=== PATIENT | male | born 1975 | race Hispanic/Latino ===

== ENCOUNTER 2018-05-05 10:22 | Inpatient (IN) | payer BC ==
[2018-05-05 11:34] LABS: Absolute Lymphocytes (CBC) 0.6 K/uL (0.7-4.9); Absolute Monocytes 1.1 K/uL (0.1-1.3); Absolute Neutrophil 20.2 K/uL (1.8-8.0); Basophils % 0.1 % (0-1.3); Hematocrit 40.5 % (39.6-49.0); Lymphocytes % 2.9 % (15.3-44.8); MPV 9.6 fL (7.6-11.3); Monocytes % 5.1 % (3.3-12.3); RBC Red Blood Cell Count 4.91 M/uL (4.33-5.43)
[2018-05-05 11:35] LABS: Protime INR 1.37
[2018-05-05 11:50] LABS: ALT/SGPT 26 U/L (12-78); AST/SGOT 16 U/L (15-37); Albumin 2.6 g/dL (3.4-5.0); Alkaline Phosphatase 104 U/L (45-117); BUN Blood Urea Nitrogen 15 mg/dL (7-18); Bicarbonate 30 mmol/L (21-32); Bilirubin Direct 0.3 mg/dL (0-0.2); Bilirubin Total 0.7 mg/dL (0.2-1.0); Glucose Level 161 mg/dL (74-106); Magnesium 2.7 mg/dL (1.8-2.4); NT PRO-BNP 107 pg/mL (<125); Potassium 3.3 mmol/L (3.5-5.1); Protein, Total 6.6 g/dL (6.4-8.2); Sodium Level 137 mmol/L (136-145); Troponin (Emerg Dept Use Only) < 0.02 ng/mL (0.0-0.045)
--- NOTE | 2018-05-05 12:03 | EKG ---
Test Date: 2018-05-05 Test Time: 10:55:46 Software Configuration Engineer: SHARON MEASUREMENT RESULTS: Intervals: Rate: 91 MS: 148 QRSD: 104 QT: 336 QTc: 413 [place]: P: 73 MS: 148 QRS: 81 T: 56 INTERPRETIVE STATEMENTS: Normal sinus rhythm Normal ECG No previous ECG available for comparison Electronically Signed On 05-05-18 12:02:37 BUN MACHINE OPERATOR by Elpidio Drummond
--- NOTE | 2018-05-05 12:27 | RAD REPORT ---
EXAM DESCRIPTION: RAD - Chest Single View - 05/05/2018 12:20 pm CLINICAL HISTORY: COUGH Chest pain. COMPARISON: Chest Pa And Lat (2 Views) dated 05/04/2018 FINDINGS: Portable technique limits examination quality. Mild worsening of the right lower lobe lung consolidation since comparative study, compatible with wo rsening pneumonia. The heart is normal in size. No displaced fractures. IMPRESSION: Mild worsening in posterior right lower lobe pneumonia since comparative study.
--- NOTE | 2018-05-05 12:54 | ER ---
Nurse's Notes [facility] Name: Juanjose Wilde Age: 43 yrs Sex: Male : 1975 Arrival Date: 05/05/2018 Time: 10:25 Bed 19 Private MD: Diagnosis: Pneumonia due to other specified bacteria-Posterior lower right lung Presentation: 05/05 10:41 Presenting complaint: Patient states: sent by Leonela Boothe, had CXR and labs drawn iw yesterday, possible pneumonia and WBC=38, pt went to clinic c/o flu like symptoms, right flank pain, fever 103 yesterday, pt denies fever today, c/o mild flank pain, cough when he exerts himself. Transition of care: patient was not received from another setting of care. Onset of symptoms was May 05, 2018. Risk Assessment: Do you want to hurt yourself or someone else? Patient reports no desire to harm self or others. Initial Sepsis Screen: Does the patient meet any 2 criteria? No. Patient's initial sepsis screen is negative. Does the patient have a suspected source of infection? No. Patient's initial sepsis screen is negative. Care prior to arrival: None. 10:41 Method Of Arrival: Ambulatory iw 10:41 Acuity: REGINA 3 iw Triage Assessment: 10:45 General: Appears in no apparent distress. comfortable, ill, Behavior is cooperative, bp appropriate for age, anxious. Pain: Denies pain. Historical: - Allergies: 10:45 No Known Allergies; iw - Home Meds: 10:45 Augmentin Oral [Active]; Tamiflu Oral [Active]; iw - PMHx: 10:45 None; iw - PSHx: 10:45 None; iw - Immunization history:: Adult Immunizations not up to date. - Social history:: Smoking status: Patient/guardian denies using tobacco. - Ebola Screening: : Patient negative for fever greater than or equal to 101.5 degrees Fahrenheit, and additional compatible Ebola Virus Disease symptoms Patient denies exposure to infectious person Patient denies travel to an Ebola-affected area in the 21 days before illness onset No symptoms or risks identified at this time. Screenin:40 Abuse screen: Denies threats or abuse. Denies injuries from another. Nutritional bp screening: No deficits noted. Tuberculosis screening: No symptoms or risk factors identified. Fall Risk None identified. Assessment: 10:45 General: Appears in no apparent distress. comfortable, ill, Behavior is cooperative, bp appropriate for age, anxious. Pain: Denies pain. Neuro: Level of Consciousness is awake, alert, obeys commands, Oriented to person, place, time, situation, Appropriate for age. Cardiovascular: Rhythm is sinus rhythm. Respiratory: Airway is patent Respiratory effort is even, unlabored, Respiratory pattern is regular, symmetrical, Breath sounds are diminished. GI: No signs and/or symptoms were reported involving the gastrointestinal system. : No signs and/or symptoms were reported regarding the genitourinary system. EENT: No deficits noted. Derm: No deficits noted. Musculoskeletal: Circulation, motion, and sensation intact. Range of motion: intact in all extremities. 12:40 Reassessment: ALL CURRENT ORDERS COMPLETED, RESULTS PENDING. bp Vital Signs: 10:45 BP 142 / 92; Pulse 108; Resp 18 S; Temp 98.6(O); Pulse Ox 99% on R/A; Weight 61.23 kg; iw Height 5 ft. 8 in. (172.72 cm); Pain 0/10; 11:42 BP 115 / 72; Pulse 92; Resp 19; Temp 98.7(O); Pulse Ox 99% on R/A; mh5 13:00 BP 112 / 83; Pulse 91; Resp 19; Pulse Ox 98% ; bp 14:00 BP 109 / 79; Pulse 85; Resp 25; Pulse Ox 99% ; bp 15:00 BP 133 / 98; Pulse 89; Resp 20; Pulse Ox 100% ; bp 16:00 BP 114 / 79; Pulse 88; Resp 19; Pulse Ox 99% ; bp 10:45 Body Mass Index 20.53 (61.23 kg, 172.72 cm) iw ED Course: 10:25 Patient arrived in ED. mr 10:28 Beny Martinez, PREMA is Primary Nurse. bp 10:29 Lobito Ann PA is PHCP. cp 10:29 Lobito De La Rosa MD is Attending Physician. cp 10:44 Triage completed. iw 10:45 Arm band placed on. iw 11:04 EKG done, by distribution tech. reviewed by Lobito POWELL. at1 11:10 Inserted saline lock: 20 gauge in right forearm, using aseptic technique. Blood bp collected. 12:19 X-ray completed. Portable x-ray completed in exam room. Patient tolerated procedure jb2 well. 12:20 XRAY Chest (1 view) In Process Unspecified. EDMS 12:40 Patient has correct armband on for positive identification. Placed in gown. Bed in low bp position. Call light in reach. Side rails up X2. 12:53 Yeyo Antonio MD is Hospitalizing Provider. cp 17:37 No provider procedures requiring assistance completed. Patient admitted, IV remains in bp place. Administered Medications: 12:45 Drug: LevaQUIN 750 mg Volume: 150 ml; Route: IVPB; Infused Over: 90 mins; Site: right bp forearm; 15:00 Follow up: IV Status: Completed infusion; IV Intake: 200ml bp Intake: 15:00 IV: 200ml; Total: 200ml. bp Outcome: 12:54 Decision to Hospitalize by Provider. cp 18:12 Admitted to Tele accompanied by tech, family with patient, via wheelchair, room 228, bp with chart, Report called to FANG LLOYD 18:12 Condition: stable 18:12 Instructed on the need for admit. 18:19 Patient left the ED. bp Signatures: Dispatcher [employer] EDAZ Alisia Patel, Dustin jb2 Daphne Hargrove, RN RN iw Velia Davis, mower operator EKG Lucian1 Lobito Ann PA PA cp Martinez, [facility] Beny Martinez, RN RN bp
--- NOTE | 2018-05-05 12:54 | EDPHYS ---
Physician Documentation [facility] Name: Juanjose Wilde Age: 43 yrs Sex: Male : 1975 Arrival Date: 05/05/2018 Time: 10:25 Bed 19 Private MD: ED Physician Lobito De La Rosa HPI: 05/05 10:45 This 43 yrs old Male presents to ER via Ambulatory with complaints of Abnormal cp Lab Results. 10:45 The patient or guardian reports cough, that is intermittent. cp 10:45 Onset: The symptoms/episode began/occurred 2 day(s) ago. Associated signs and symptoms: cp Pertinent positives: fever, Pertinent negatives: chest pain, diarrhea, vomiting. Patient reports seeing PCP yesterday and having abnormal WBC of 33. Patient reports he was referred to ED for evaluation. Was started on oral Augmentin yesterday. Historical: - Allergies: 10:45 No Known Allergies; iw - Home Meds: 10:45 Augmentin Oral [Active]; Tamiflu Oral [Active]; iw - PMHx: 10:45 None; iw - PSHx: 10:45 None; iw - Immunization history:: Adult Immunizations not up to date. - Social history:: Smoking status: Patient/guardian denies using tobacco. - Ebola Screening: : Patient negative for fever greater than or equal to 101.5 degrees Fahrenheit, and additional compatible Ebola Virus Disease symptoms Patient denies exposure to infectious person Patient denies travel to an Ebola-affected area in the 21 days before illness onset No symptoms or risks identified at this time. ROS: 10:55 Constitutional: Negative for body aches, chills, fever, poor PO intake. cp 10:55 Eyes: Negative for injury, pain, redness, and discharge. cp 10:55 ENT: Negative for drainage from ear(s), ear pain, sore throat, difficulty swallowing, difficulty handling secretions. 10:55 Neck: Negative for pain with movement, pain at rest, stiffness. 10:55 Cardiovascular: Negative for chest pain, edema, palpitations. 10:55 Respiratory: Positive for cough, Negative for shortness of breath, wheezing. 10:55 Abdomen/GI: Negative for abdominal pain, nausea, vomiting, and diarrhea, black/tarry stool, rectal bleeding. 10:55 Skin: Negative for cellulitis, rash. 10:55 Neuro: Negative for altered mental status, dizziness, headache, syncope, near syncope, weakness. 10:55 All other systems are negative. Exam: 11:00 Constitutional: The patient appears in no acute distress, alert, awake, cp non-diaphoretic, non-toxic, well developed, well nourished. 11:00 Head/Face: Normocephalic, atraumatic. cp 11:00 Eyes: Periorbital structures: appear normal, Conjunctiva: normal, no exudate, no injection, Sclera: no appreciated abnormality, Lids and lashes: appear normal, bilaterally. 11:00 ENT: External ear(s): are unremarkable, Ear canal(s): are normal, clear, TM's: dullness, bilaterally, Nose: is normal, Mouth: Lips: moist, Oral mucosa: pink and intact, moist, Posterior pharynx: Airway: no evidence of obstruction, patent, Tonsils: are normal in appearance, Uvula: midline, swelling, is not appreciated, erythema, is not appreciated, exudate, is not appreciated. 11:00 Neck: ROM/movement: is normal, is supple, without pain, no range of motions limitations, no meningismus, no nuchal rigidity, Lymph nodes: no appreciated lymphadenopathy. 11:00 Chest/axilla: Inspection: normal, Palpation: is normal, no crepitus, no tenderness. 11:00 Cardiovascular: Rate: tachycardic, Rhythm: regular, Pulses: Pulses are 2+ in right radial artery and left radial artery. Edema: is not appreciated, JVD: is not appreciated. 11:00 Respiratory: the patient does not display signs of respiratory distress, Respirations: normal, no use of accessory muscles, no retractions, no splinting, no tachypnea, labored breathing, is not present, Breath sounds: are clear throughout, no decreased breath sounds, no stridor, no wheezing. 11:00 Abdomen/GI: Inspection: abdomen appears normal, Bowel sounds: active, all quadrants, Palpation: abdomen is soft and non-tender, in all quadrants. 11:00 Back: pain, is absent, ROM is normal. 11:00 Skin: cellulitis, is not appreciated, no rash present. 11:00 Neuro: Orientation: to person, place \T\ time. Mentation: is normal, Cerebellar function: is grossly normal, Motor: moves all fours, strength is normal, Sensation: is normal. 11:10 ECG was reviewed by the Attending Physician. cp Vital Signs: 10:45 BP 142 / 92; Pulse 108; Resp 18 S; Temp 98.6(O); Pulse Ox 99% on R/A; Weight 61.23 kg; iw Height 5 ft. 8 in. (172.72 cm); Pain 0/10; 11:42 BP 115 / 72; Pulse 92; Resp 19; Temp 98.7(O); Pulse Ox 99% on R/A; mh5 13:00 BP 112 / 83; Pulse 91; Resp 19; Pulse Ox 98% ; bp 14:00 BP 109 / 79; Pulse 85; Resp 25; Pulse Ox 99% ; bp 15:00 BP 133 / 98; Pulse 89; Resp 20; Pulse Ox 100% ; bp 16:00 BP 114 / 79; Pulse 88; Resp 19; Pulse Ox 99% ; bp 10:45 Body Mass Index 20.53 (61.23 kg, 172.72 cm) iw MDM: 10:36 Patient medically screened. cp 11:00 Differential diagnosis: bronchitis, flu, pneumonia, sepsis. cp 12:45 Data reviewed: vital signs, nurses notes, lab test result(s), EKG, radiologic studies, cp plain films. 12:45 Test interpretation: by ED physician or midlevel provider: ECG, plain radiologic cp studies. Response to treatment: the patient's symptoms have markedly improved after treatment. 05/05 10:40 Order name: Basic Metabolic Panel; Complete Time: 12:32 cp 05/05 10:40 Order name: CBC with Diff cp 05/05 11:43 Interpretation: Normal except: KEELY% 91.9; LYM% 2.9; LYMA 0.6; WBC 22.0; NEUT A 20.2. cp 05/05 10:40 Order name: LFT's; Complete Time: 12:32 cp 05/05 10:40 Order name: Magnesium; Complete Time: 12:32 cp 05/05 10:40 Order name: NT PRO-BNP; Complete Time: 12:32 cp 05/05 10:40 Order name: PT-INR; Complete Time: 12:32 cp 05/05 10:40 Order name: Troponin (emerg Dept Use Only); Complete Time: 12:32 cp 05/05 10:40 Order name: Blood Culture Adult (2) cp 05/05 10:40 Order name: Procalcitonin; Complete Time: 12:32 cp 05/05 10:40 Order name: Lactate; Complete Time: 12:32 cp 05/05 11:43 Order name: Manual Differential EDMS 05/05 13:08 Order name: ABG Arterial Blood Gas EDMS 05/05 13:08 Order name: Lactate EDMS 05/05 13:09 Order name: Lactate EDMS 05/05 10:40 Order name: EKG; Complete Time: 10:42 cp 05/05 10:40 Order name: Cardiac monitoring; Complete Time: 10:47 cp 05/05 10:40 Order name: EKG - Nurse/Tech; Complete Time: 10:47 cp 05/05 10:40 Order name: IV Saline Lock; Complete Time: 11:18 cp 05/05 10:40 Order name: Labs collected and sent; Complete Time: 11:18 cp 05/05 10:40 Order name: O2 Per Protocol; Complete Time: 10:47 cp 05/05 10:40 Order name: O2 Sat Monitoring; Complete Time: 10:47 cp 05/05 11:46 Order name: XRAY Chest (1 view); Complete Time: 12:32 cp 05/05 13:09 Order name: Lactate EDMS EC:10 Rate is 91 beats/min. Rhythm is regular. NE interval is normal. QRS interval is cp prolonged at 104 msec. QT interval is normal. Interpreted by me. Reviewed by me. Administered Medications: 12:45 Drug: LevaQUIN 750 mg Volume: 150 ml; Route: IVPB; Infused Over: 90 mins; Site: right bp forearm; 15:00 Follow up: IV Status: Completed infusion; IV Intake: 200ml bp Disposition: 05/06 07:06 Co-signature as Attending Physician, Lobito De La Rosa MD I agree with the assessment and melissa plan of care. Disposition: 05/05/18 12:54 Hospitalization ordered by Yeyo Antonio for Inpatient Admission. Preliminary diagnosis is Pneumonia due to other specified bacteria - Posterior lower right lung. - Bed requested for Telemetry/MedSurg (Inpatient). - Status is Inpatient Admission. bp - Condition is Stable. - Problem is new. - Symptoms have improved. UTI on Admission? No Signatures: Dispatcher [employer] EDLA Lobito De La Rosa MD MD cha Williams, Irene RN RN iw Lobito Ann PA PA cp Simran Minor, RN RN df Beny Martinez RN RN bp Corrections: (The following items were deleted from the chart) 05/05 11:43 11:43 Normal except: WBC 22.0; KEELY% 91.9; LYM% 2.9. cp cp 12:54 12:54 Hospitalization Ordered by Yeyo Antonio MD for Inpatient Admission. Preliminary cp diagnosis is Pneumonia due to other specified bacteria. Bed requested for Telemetry/MedSurg (Inpatient). Status is Inpatient Admission. Condition is Stable. Problem is new. Symptoms have improved. UTI on Admission? No. cp 17:08 12:54 05/05/2018 12:54 Hospitalization Ordered by Yeyo Antonio MD for Inpatient df Admission. Preliminary diagnosis is Pneumonia due to other specified bacteria - Posterior lower right lung. Bed requested for Telemetry/MedSurg (Inpatient). Status is Inpatient Admission. Condition is Stable. Problem is new. Symptoms have improved. UTI on Admission? No. cp 17:48 17:08 05/05/2018 12:54 Hospitalization Ordered by Yeyo Antonio MD for Inpatient df Admission. Preliminary diagnosis is Pneumonia due to other specified bacteria - Posterior lower right lung. Bed requested for Telemetry/MedSurg (Inpatient). Status is Inpatient Admission. Condition is Stable. Problem is new. Symptoms have improved. UTI on Admission? No. df 18:19 17:48 05/05/2018 12:54 Hospitalization Ordered by Yeyo Antonio MD for Inpatient bp Admission. Preliminary diagnosis is Pneumonia due to other specified bacteria - Posterior lower right lung. Bed requested for Telemetry/MedSurg (Inpatient). Status is Inpatient Admission. Condition is Stable. Problem is new. Symptoms have improved. UTI on Admission? No. df
[2018-05-05 12:56] LABS: Blood Morphology Comment NOT SEEN (NOT SEEN); Platelet Estimate ADEQ
[2018-05-05] MEDS ORDERED: SODIUM CHL 0.9% 1000 ML BAG IV ONE (13:06)
[2018-05-05] MEDS ORDERED: Levofloxacin 750mg IV 750 MG/150 ML BAG IV ONE (13:10)
[2018-05-05 13:37] LABS: Arterial Blood Carboxyhemoglob 0.8 % (0-1.5); Blood Gas Oxyhemoglobin 95.2 % (94-97); Blood O2 Saturation 97.1 % (92-98.5)
[2018-05-05] MEDS ORDERED: NA CHLORIDE 0.9% 2,000 ML ONE (17:03)
[2018-05-05] MEDS ORDERED: ONDANSETRON 4 MG/2 ML VIAL IV PRN (18:09)
[2018-05-05] MEDS ORDERED: ACETAMINOPHEN 325 MG TABLET PO PRN (18:09)
[2018-05-05] MEDS: ENOXAPARIN 40 MG/0.4 ML SQ SCH (19:27)
[2018-05-05] MEDS: NA CHLORIDE 0.9% 1,000 ML IV SCH (19:28)
[2018-05-05] MEDS ORDERED: POTASSIUM CL SA 10 MEQ TAB PO ONE (20:22)
--- NOTE | 2018-05-06 02:30 | HP ---
Date of Admission: 05/05/2018 Chief Complaint: Shortness of breath, fever, chills. History Of Present Illness: The patient is a 43-year-old male with no significant past medical histo ry, who was in his usual state of health until 3 days prior to admission when the patient had sudden onset of fever, chills, cough with scant sputum production along with lethargy and nausea. The patie nt denies any ill contacts. The patient was unable to go to work on Wednesday. He came into the clini c in [place], had blood draw, and was referred to the hospital for imaging studies. The patien t did not wish to go to [place], therefore came into [facility] for evaluation. Chest x-ray was done and the patient was discharged with antibiotics. The patient was then called from the hospital due t o his x-ray results and was stated to come into the hospital for further evaluation and treatment. T he patient has had elevated temperature. His symptoms are constant, moderate, progressively worsenin g. In the ER, his workup revealed a white count of 22,000. His lactate was negative. Procalcitonin was elevated at 5.38. Potassium was low. The patient was started on IV antibiotics, was given IV f luids, and then referred for admission. When the patient was seen in the ER, he was awake, alert, or iented x3, in some mild distress. Past Medical History: None. Past Surgical History: The patient denies any surgical history. Allergies: NO KNOWN DRUG ALLERGIES. Medications: The patient was prescribed antibiotic yesterday, only took 1 dose prior to being admitt ed to the hospital. Family History: States high blood pressure runs in the family. Social History: The patient is . No children. 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 Denies any nicotine use. Does not smoke. Does drink occasionally. In the past month, drank 18 beers throughout the month. Not a daily drinker. No illicit drug use. Review of Systems: An 11-point system reviewed, negative except as per HPI. Physical Examination: Vital Signs: Blood pressure 142/92, pulse 108, respirations 18, temperature 98.6, O2 99% on room air . General: Awake, alert, oriented x3, in some mild distress, ill-appearing male. HEENT: Normocephalic, atraumatic. PERRLA. EOMI. Dry mucous membranes. Oropharynx is clear. Conj unctivae anicteric. Neck: Supple. No JVD. Trachea midline. CV: S1, S2. Regular rate and rhythm. Peripheral pulses present. No murmurs. Respiratory: Diminished breath sounds at the bases, right worse than left. No wheezing. Some dulln ess to percussion on the right base. Gastrointestinal: Abdomen is soft, nontender, nondistended. Positive bowel sounds. Extremities: No clubbing, cyanosis, or edema. No calf tenderness. Neuro: Cranial nerves 2-12 intact grossly. No focal neurological deficit. Speech is normal. Stren gth is 5/5 bilateral upper and lower extremities. Sensation intact to light touch. Skin: No rashes. Normal skin turgor. Capillary refill is less than 2 seconds. Laboratory Data: Sodium 137, potassium 3.3, chloride 101, CO2 30, BUN 15, creatinine 0.7, glucose 16 1, lactate 1.3, repeat lactate level is 1, calcium 9, magnesium 2.7. Troponin less than 0.02. Album in 2.6. Procalcitonin is 5.38. ABG; pH 7.48, pCO2 36.3, pO2 92.7, bicarb 26.4, INR 1.37. WBC 22,00 0, H and H is 13.9 and 40.5, platelets 255, neutrophils 91%, 1% bands. Chest x-ray shows mild worsen ing in the posterior right lower lobe pneumonia since comparative study from yesterday. EKG shows no rmal sinus rhythm, rate of 91. No EKG for comparison. Assessment: A 43-year-old male with: 1.Sepsis secondary to pneumonia. The patient has elevated white count 22,000. Procalcitonin is als o elevated. The patient is tachypneic, had high fevers. We will start on sepsis bundle, IV fluid hy dration, broad-spectrum IV antibiotics. Follow up on cultures. 2.Right lower lobe pneumonia. We will continue antibiotics. Follow up on culture results. 3.Hypokalemia. We will replace and monitor. 4.Gastrointestinal and deep venous thrombosis prophylaxis with PPI and Lovenox. Plan: Admit the patient to [facility], place as inpatient with remote cardiac telemetry. Length of st ay greater than 2 midnights. SA/MODL Voice ID: [id number]
[2018-05-06 02:39] LABS: Urine Appearance CLEAR; Urine Bilirubin NEGATIVE (NEG); Urine Blood NEGATIVE (NEG); Urine Color YELLOW; Urine Glucose NEGATIVE (NEG); Urine Protein TRACE (NEG); Urine Specific Gravity 1.025 (1.005-1.030)
[2018-05-06 02:50] LABS: Urine Microscopic Reflex ORDER UMIC
[2018-05-06 03:37] LABS: Urine Bacteria <20 /HPF (NONE SEEN); Urine Culture Reflex Order NOT NEEDED; Urine Mucus 4+ /HPF (NONE SEEN); Urine RBC <5 /HPF (NONE SEEN)
[2018-05-06] MEDS: NA CHLORIDE 0.9% 1,000 ML IV SCH ×4 (05:34→16:41)
[2018-05-06 09:18] LABS: BUN Blood Urea Nitrogen 16 mg/dL (7-18); Bicarbonate 29 mmol/L (21-32); Glucose Level 99 mg/dL (74-106); Potassium 3.9 mmol/L (3.5-5.1); Sodium Level 141 mmol/L (136-145)
[2018-05-06] MEDS ORDERED: OSELTAMIVIR 75 MG CAP PO SCH (10:00)
[2018-05-06 10:16] LABS: Absolute Monocytes 0.9 K/uL (0.1-1.3); Absolute Neutrophil 12.1 K/uL (1.8-8.0); Basophils % 0.1 % (0-1.3); Eosinophils % 0.2 % (0-4.4); Hematocrit 37.1 % (39.6-49.0); MPV 9.4 fL (7.6-11.3); Monocytes % 6.4 % (3.3-12.3); RBC Red Blood Cell Count 4.48 M/uL (4.33-5.43)
[2018-05-06] MEDS ORDERED: Levofloxacin 750mg IV 750 MG/150 ML BAG IV SCH (13:00)
[2018-05-06] MEDS ORDERED: POTASSIUM CL SA 10 MEQ TAB PO ONE (16:00)
[2018-05-06] MEDS: ENOXAPARIN 40 MG/0.4 ML SQ SCH (16:35)
--- NOTE | 2018-05-06 16:37 | PN ---
Date of Progress Note: 05/06/2018 Subjective: The patient is seen and examined, chart reviewed, and case discussed with RN. The patie nt feels significantly better, still having some cough without any amount of significant sputum. Medications: List reviewed. Physical Examination: Vital Signs: Temperature 97.9, heart rate 86, blood pressure 105/68, respirations 16, and O2 of 98% on room air. General: Awake, alert, and oriented x3. No acute distress. Mildly ill-appearing male. CV: S1 and S2, regular rate and rhythm. Peripheral pulses present. Respiratory: Moving air well bilaterally. No wheezing or stridor. Gastrointestinal: Abdomen is soft, nontender, and nondistended. Positive bowel sounds. Extremities: No clubbing, cyanosis, or edema. Neurologic: Nonfocal. Laboratory Data: Sodium 141, potassium 3.9, chloride 109, CO2 of 29, BUN 16, creatinine 0.63, glucos e 99, and calcium 8.4. WBC 14, H and H of 12.5 and 37.1, platelets 251, neutrophils 86.3%. Assessment And Plan: A 43-year-old male with, 1.Sepsis secondary to pneumonia, improving. Blood cultures, no growth to date. Sputum culture, pen ding. 2.Right lower lobe pneumonia. We will continue antibiotics. Cultures are negative. Clinically imp roved cough, however, still persistent. No fevers. White count trending down. 3.Hypokalemia. We will replace and monitor. 4.Gastrointestinal and deep venous thrombosis prophylaxis with PPI and Lovenox. PLAN: Likely discharge in a.m. if continues to improve. Continue IV fluids. /ALETHA Voice ID: [id number] Report ID: [id number]
[2018-05-07] MEDS: NA CHLORIDE 0.9% 1,000 ML IV SCH ×2 (02:08→06:51)
[2018-05-07 05:31] LABS: Absolute Monocytes 0.8 K/uL (0.1-1.3); Absolute Neutrophil 8.6 K/uL (1.8-8.0); Basophils % 0.3 % (0-1.3); Eosinophils % 0.3 % (0-4.4); Hematocrit 37.9 % (39.6-49.0); Lymphocytes % 9.9 % (15.3-44.8); MPV 9.8 fL (7.6-11.3); Monocytes % 7.2 % (3.3-12.3); RBC Red Blood Cell Count 4.49 M/uL (4.33-5.43)
[2018-05-07 05:50] LABS: ALT/SGPT 44 U/L (12-78); AST/SGOT 13 U/L (15-37); Albumin 2.2 g/dL (3.4-5.0); Alkaline Phosphatase 92 U/L (45-117); BUN Blood Urea Nitrogen 12 mg/dL (7-18); Bicarbonate 26 mmol/L (21-32); Bilirubin Total 0.4 mg/dL (0.2-1.0); Glucose Level 104 mg/dL (74-106); Potassium 3.6 mmol/L (3.5-5.1); Protein, Total 5.4 g/dL (6.4-8.2); Sodium Level 143 mmol/L (136-145)
[2018-05-07] MEDS ORDERED: POTASSIUM CL SA 10 MEQ TAB PO ONE (06:31)
--- NOTE | 2018-05-08 07:41 | DS ---
Date of Discharge: 05/07/2018 Admitting Diagnoses: 1.Sepsis. 2.Pneumonia, right lower lobe. 3.Hypokalemia. Discharge Diagnoses: 1.Sepsis, resolving. 2.Pneumonia, right lower lobe, improved. 3.Hypokalemia, corrected. 4.Severe protein-calorie malnutrition. Albumin 2.2, continue with supplements. Hospital Course: The patient is a 43-year-old male who was admitted to the hospital with sepsis seco ndary to right lower lobe pneumonia. The patient had elevated white count at 22,000. His procalcito bashir was elevated at 5.3. He was septic. He was started on sepsis bundle, was received sepsis bolus with IV fluids, and started on IV antibiotics. The patient's condition improved with antibiotic ramiro tment. His cultures remained negative. White count normalized. His procalcitonin was trending down . He was no longer septic. The patient is able to move around without any difficulty. Cough still continuing, however, very little sputum production. No shortness of breath. The patient was afebril e. No longer septic appearing. The patient was then discharged home in a stable condition. Activity: As tolerated. Medications: As per medication reconciliation list. Followup: Follow up with primary care physician in 2 to 3 days. Return to ER for worsening conditio n. Diet: Regular. Physical Examination: General: Awake, alert, and oriented, in no acute distress. CV: S1, S2. No murmurs. Respiratory: Moving air well bilaterally. Abdomen: Soft, nontender, nondistended. Positive bowel sounds. Extremities: No clubbing, cyanosis, or edema. Neurologic: Nonfocal. Total time spent discharging the patient was 34 minutes. /ALETHA Voice ID: [id number] Report ID: [id number]
== END 2018-05-07 10:55 | disposition home or self-care (01) | DRG 871 ==
LOC: ER 10:22 → ERHOLD 13:01 → 2ND 18:09
PROVIDERS: ADMIT Family Medicine; ATTEND Family Medicine
DX: A41.9 Sepsis, unspecified organism (principal); J18.9 Pneumonia, unspecified organism; E87.6 Hypokalemia
CPT/HCPCS: 36415; 71045; 80048; 80053; 80076; 81003; 81015; 82805; 83605; 83735; 83880; 84145; 84484; 85025; 85610; 87040; 87070; 87205; 93005; 94760; 96365; 96366; 99285; J1650; J7030